=== PATIENT | male | born 1995 | race Hispanic/Latino ===

== ENCOUNTER 2017-01-28 14:05 | Emergency (ER) | payer OTHER ==
[~2017-01-28] VITALS: Ht 175.3 cm; Wt 77.3 kg
[~2017-01-28 14:05] MED LIST: NAPR500T PO
[2017-01-28 14:08] VITALS: BP 139/81; PULSE 68; RESP 16; O2SAT 96
--- NOTE | 2017-01-28 14:13 | ED.REPORT ---
HPI-Dyspnea / Wheezing Date of Service Jan 28, 2017 ED Provider: Jamil Castillo MD Pt is a generally healthy 21 y/o male w/ a hx of asthma presenting to the ED c/ o cough onset 2 weeks ago. He states when he lays down to go to sleep he experiences cough bad enough to wake him up 1 hour later. He also reports small specks of blood in bright greens sputum and vomiting after a long bout of coughing. He feels short of breath during the day. He has a history of asthma as a child and has not used an inhaler recently. Pt denies fever. He denies recent lower extremity edema or pain, long periods of immobilization, history of PE or DVT. Nursing Notes Stated Complaint: COUGHING UP BLOOD Chief Complaint: General Complaint Nursing Notes Reviewed: Yes Allergies: Coded Allergies: No Known Allergies (Verified , 01/28/17) Scheduled Azithromycin (Zithromax (Z-Alverto)) 250 Mg Tablet 250 MG PO DIRECTED Take two tablets by mouth on day 1, then take one tablet daily on days 2 through 5. Scheduled PRN Naproxen (Naprosyn) 500 Mg Tablet 500 MG PO BID PRN PRN For Pain General Time Seen by MD: 14:11 Chief Complaint Cough Hx Obtained From: Patient Arrived By: Walk-in Sudden in Onset?: No Onset Occurred: More than a week ago... (2 weeks) Symptom Duration: Since onset Severity: Current: No pain currently Severity: Maximum: No pain Recent Healthcare: No recent doctor visit, No recent hospitalization Similar Sx Previous: No Risk Factors Well's Criteria for PE Hemoptysis (1) Well's PE Score: 0-2 pts (low risk 3.6%) Past Medical History Past Medical History Asthma with admission in 2005 Chronic R knee pain Past Surgical History Yes, unknown Smoking History Current Every Day Smoker Social History Alcohol Use: Denies alcohol use Drug Use: Denies drug use Ambulatory Status Independent Review of Systems Constitutional: Denies: Chills, Fever Respiratory: Reports: Hemoptysis, Pleuritic pain, Prod cough, green, Shortness of breath Cardiovascular: Reports: Chest pain, Orthopnea Complete sys rev & neg: except as marked. GI: Reports: Nausea, Vomiting, Denies: Abdominal pain Physical Exam Initial Vital Signs Vital Signs (First) Date Time Temp Pulse Resp B/P Pulse Ox O2 Delivery O2 Flow Rate FiO2 6/15/17 14:08 36.6 68 16 139/81 96 Room Air Initial VS: Reviewed, Vital signs normal Head / Eyes: Atraumatic, Normocephalic, PERRL ENT: Mucous membranes moist, Conjunctiva normal, No scleral icterus Abdomen / GI: Soft, Non-tender, No guarding, No rebound, No distention Extremities: Vascular intact, Neuro intact, No swelling, No tenderness Skin: Warm, Dry, No cyanosis Neurologic: Alert, Oriented, Nonfocal Psychiatric: Mood/affect normal, Behavior normal, Normal thought content General/Constitutional: Awake, Alert, No acute distress, Cooperative, Not toxic appearing Neck: Atraumatic, Supple, No meningismus, Full range of motion Respiratory / Chest: Breath sounds = bilat, No respiratory distress, No rales, No rhonchi, No retractions, No stridor Faint bibasilar wheezes Cardiovascular: Heart rate NL, Regular rhythm, Heart sounds NL, No gallop, No murmurs, No rubs, Cap refill not delayed, Peripheral circulation NL Interpretation & Diagnostics X-Ray Chest Interpretation Chest Xray Interpretation: No focal consolidation View: Portable, 1 view Interpretation / Wet Read by: Wet read ED physician NL X-Ray Chest Findings: No infiltrate, No acute disease Re-Eval/Medical Decision Med Decision/Clinical Course 21-year-old male history of asthma presenting with cough productive of green sputum with small flecks of blood worsening over the past 2 weeks. Mild wheezing on exam. He is a smoker. He has no risk factors for PE or DVT. His vital signs are stable. Patient was given an inhaler and Z-Alverto for bronchitis. CXR clear. Does not want labs. He will follow up with primary doctor return if any new or worsening symptoms. Re-Evaluation/Progress : Time of Eval: 15:19 Re-Evaluation/Progress Note: Pt rechecked. Informed pt of plan for treatment. Pt understands and agrees with plan for treatment. F/U instructions and RTER warnings given. All questions addressed. Counseled Regarding: Diagnosis, Need for follow-up, When/why to return to ED Discharge & Departure Impression: Primary Impression: Bronchitis Disposition: Home Discharge Condition All VS Reviewed: Yes Condition: Stable Patient Instructions: Acute Bronchitis (ED) Additional Instructions: The chest x-ray today was normal. There was no sign of pneumonia. I suspect you have bronchitis. Take the antibiotics as prescribed. Use the inhaler as needed for shortness of breath or wheezing. Return to the emergency department for worsening chest pain, worsening shortness of breath, high fever, persistent vomiting, or for other concerning symptoms. Follow-up with your doctor in 3 days if symptoms persist. Referrals: [facility] Scribe Attestation Portions of this note were transcribed by Napoleon Mukherjee. I, Dr. Castillo personally performed the history, physical exam and medical decision-making; I reviewed and confirmed the accuracy of the information in the transcribed note. Signed by Irais Orellana, 01/28/17 - Jamil Castillo MD Jan 28, 2017 14:13 NAPOLEON MUKHERJEE Jan 28, 2017 14:31
[2017-01-28] MEDS ORDERED: AZIT250T4 PO (14:45)
[2017-01-28] MEDS ORDERED: Albuterol HFA 60 Puff 8 Gm Inhaler INHALATION ONE (14:45)
--- NOTE | 2017-01-28 14:57 | DRSVH ---
PROCEDURE: X-RAY CHEST ONE VIEW, PORTABLE ([id number]) INDICATIONS: cough TECHNIQUE: One view of the chest was acquired. COMPARISON: None. FINDINGS: Surgical changes and devices: None. Lungs and pleura: No pleural effusions or pneumothorax. Lungs are clear. Mediastinum: Mediastinal contours appear normal. Heart size is normal. Bones and chest wall: No suspicious bony lesions. Overlying soft tissues appear unremarkable. IMPRESSION: No acute cardiopulmonary disease process. Dictated by: Mesha Campos MD, PhD on 01/28/2017 at 14:55 Approved by: Mesha Campos MD, PhD on 01/28/2017 at 14:55
[2017-01-28] MEDS ORDERED: Albuterol HFA 60 Puff 8 Gm Inhaler INHALATION PRN (15:15)
[2017-01-28] MEDS ORDERED: Albuterol HFA 60 Puff 8 Gm Inhaler INHALATION SCH (15:15)
[2017-01-28] MEDS ORDERED: Albuterol HFA 200 Puff Inhaler (Vent Pts Only) INHALATION PRN (15:20)
[2017-01-28] MEDS ORDERED: Albuterol HFA 200 Puff Inhaler (Vent Pts Only) INHALATION SCH (15:30)
[2017-01-28 16:25] VITALS: BP 128/76; PULSE 65; RESP 16; O2SAT 96
== END 2017-01-28 16:27 | disposition home or self-care (01) ==
LOC: SED 14:05
DX: J40 Bronchitis, not specified as acute or chronic (principal); J45.909 Unspecified asthma, uncomplicated; M25.561 Pain in right knee; G89.29 Other chronic pain; F17.200 Nicotine dependence, unspecified, uncomplicated